=== PATIENT | male | born 1975 | race Two or more races ===

== ENCOUNTER 2020-09-19 16:41 | Emergency (ER) | payer MEDICAID, OTHER ==
[~2020-09-19] VITALS: Ht 177.8 cm; Wt 99.8 kg
[2020-09-19 16:50] VITALS: BP 113/82
[2020-09-19] MEDS ORDERED: IBUPROFEN 800 MG TAB PO ONE (18:15)
== END 2020-09-19 18:26 | disposition home or self-care (01) ==
LOC: ER 16:41 → EDBD 16:41 → ER 18:24
DX: S16.1XXA Strain of muscle, fascia and tendon at neck level, initial encounter (principal); V43.52XA Car driver injured in collision with other type car in traffic accident, initial encounter; Y93.89 Activity, other specified; Y92.488 Other paved roadways as the place of occurrence of the external cause; Y99.8 Other external cause status
CPT/HCPCS: 72040